=== PATIENT | male | born 1960 | race African-American/Black ===

== ENCOUNTER 2018-09-14 09:04 | Emergency (ER) | payer OTHER ==
[~2018-09-14] VITALS: Ht 177.8 cm; Wt 86.2 kg
[2018-09-14 09:07] VITALS: BP 143/82
[2018-09-14] MEDS ORDERED: HYDROcodone/APAP 5/325MG 1 TAB TABLET PO ONE (09:45)
[2018-09-14] MEDS ORDERED: ORPHENADRINE CITRATE 60 MG/2 ML VIAL. IM ONE (09:45)
--- NOTE | 2018-09-14 10:11 | RAD ---
EXAM: Lumbar spine, 3 views. HISTORY: Fall. COMPARISON: None. FINDINGS: 3 views lumbar spine are obtained. There is no listhesis. The vertebral bodies are normal in height and the disc spaces are preserved. IMPRESSION: No acute osseous finding. Electronically signed by: Radha Cruz MD (09/14/2018 10:07 AM) [id number]
[2018-09-14] MEDS ORDERED: HYDR-2761 PO (10:41)
[2018-09-14] MEDS ORDERED: ORPH100T PO (10:41)
--- NOTE | 2018-09-14 10:42 | PHYS DOC ---
Past Medical History Past Medical History: Diabetes-Type II, Hypertension Alcohol Use: Occasionally Drug Use: None Adult General Chief Complaint Chief Complaint: MECHANICAL FALL HPI HPI Patient is a 58 year old AA male who presents to the ER with complaints of a headache, photosensitivity, upper back pain, and low back pain after a fall on the ice while working this morning. Pt states he slipped and landed flat on his back. He denies any LOC, dizziness, blurred vision, nausea, vomiting, neck pain , numbness/tingling of his extremities, or weakness. PT states that when he fell his head was padded by the hat and coat he was wearing. Currently, he rates his pain a 6-7/10. He states that he has not taken anything for relief of the pain [employer]HE[employer]. Review of Systems Review of Systems Constitutional: Denies fever or chills [] Eyes: Denies change in visual acuity, redness, or eye pain, reports photosensitivity [] Respiratory: Denies shortness of breath [] GI: Denies abdominal pain, nausea, or vomiting Musculoskeletal: See HPI Integument: Denies rash or skin lesions [] Neurologic: Denies focal weakness or sensory changes; reports mild headache All other systems were reviewed and found to be within normal limits, except as documented in this note. Current Medications Current Medications Current Medications Medications (Trade) Dose Ordered Sig/[facility] Start Time Stop Time Status Last Admin Dose Admin Acetaminophen/ Hydrocodone Bitart (Lortab 5/325) 1 tab 1X ONCE 09/14/18 09:45 09/14/18 09:46 DC 09/14/18 09:44 1 TAB Orphenadrine Citrate (Norflex) 60 mg 1X ONCE 09/14/18 09:45 09/14/18 09:46 DC 09/14/18 09:44 60 MG Allergies Allergies Allergies Coded Allergies Type Severity Reaction Last Updated Verified No Known Drug Allergies 09/14/18 No Physical Exam Physical Exam Constitutional: Well developed, well nourished, no acute distress, non-toxic appearance. [] HENT: Normocephalic, atraumatic, bilateral external ears normal, oropharynx moist, no oral exudates, nose normal. [] Eyes: PERRLA, conjunctiva normal, no discharge. [] Neck: Normal range of motion, no bony tenderness, supple, no stridor. [] Cardiovascular:Heart rate regular rhythm, no murmur [] Lungs & Thorax: Bilateral breath sounds clear to auscultation [] Skin: Warm, dry, no erythema, no rash. [] Back: lumbar spine tenderness to palpation, no cervical or thoracic spine bony tenderness, left paraspinal tenderness to palpation of T-spine Extremities: No tenderness, no cyanosis, no clubbing, ROM intact, no edema. [] Neurologic: Alert and oriented X 3, normal motor function, normal sensory function, no focal deficits noted. [] Psychologic: Affect normal, judgement normal, mood normal. [] Current Patient Data Vital Signs Vital Signs Date Time Temp Pulse Resp B/P (MAP) Pulse Ox O2 Delivery O2 Flow Rate FiO2 09/14/18 09:07 98.2 94 16 143/82 (102) 98 Room Air 98.2 EKG EKG [] Radiology/Procedures Radiology/Procedures PROCEDURE: LUMBAR SPINE 2-3V EXAM: Lumbar spine, 3 views. HISTORY: Fall. COMPARISON: None. FINDINGS: 3 views lumbar spine are obtained. There is no listhesis. The vertebral bodies are normal in height and the disc spaces are preserved. IMPRESSION: No acute osseous finding. [] Course & Med Decision Making Course & Med Decision Making Pertinent Labs and Imaging studies reviewed. (See chart for details) Dx: low back pain/ strain; fall lumbar x-ray negative. [place] C-spine rule not concerning for head trauma.. Pt was given IM norflex and a hydrocodone in the ER, reports reduced pain from medications. Prescriptions written for hydrocodone and norflex. Follow up with work comp doc in 1-2 days, return to ER if symptoms worsen. Patient verbalized an understanding of home care, medications, follow-up, and return to ED instructions and was in agreement with the plan of care. [] Dragon Disclaimer Dragon Disclaimer This electronic medical record was generated, in whole or in part, using a voice recognition dictation system. Departure Departure Impression: Primary Impression: Fall Additional Impressions: Low back pain Low back strain Disposition: 01 HOME, SELF-CARE Condition: STABLE Referrals: NO PCP (PCP) Patient Instructions: Low Back Strain with [facility] Additional Instructions: Fill prescription(s) and use as directed. Recommend application of ice and rest of affected area. Follow up with your work comp doctor in 1-2 days. Return to the ER if your symptoms worsen. Scripts Hydrocodone Bit/Acetaminophen (HYDROCODONE-APAP 5-325 ) 1 Each Tablet 1 TAB PO PRN Q6HRS PRN for PAIN for 2 Days, #8 TAB 0 Refills Prov: COREY PEPPER APRN 09/14/18 Orphenadrine Citrate (ORPHENADRINE CITRATE) 100 Mg Tablet.er 100 MG PO BID PRN for PAIN for 10 Days, #20 TAB.SR 0 Refills Prov: COREY PEPPER APRN 09/14/18 Problem Qualifiers Primary Impression: Fall Encounter type: initial encounter Qualified Codes: W19.XXXA - Unspecified fall, initial encounter Additional Impressions: Low back pain Chronicity: acute Back pain laterality: bilateral Sciatica presence: without sciatica Qualified Codes: M54.5 - Low back pain Low back strain Encounter type: initial encounter Qualified Codes: S39.012A - Strain of muscle, fascia and tendon of lower back, initial encounter COREY PEPPER APRN Sep 14, 2018 10:42
== END 2018-09-14 10:45 | disposition home or self-care (01) ==
LOC: ER 09:04
DX: S39.012A Strain of muscle, fascia and tendon of lower back, initial encounter (principal); M54.6 Pain in thoracic spine; R51 Headache; E11.9 Type 2 diabetes mellitus without complications; I10 Essential (primary) hypertension; W00.0XXA Fall on same level due to ice and snow, initial encounter; Y93.89 Activity, other specified; Y92.89 Other specified places as the place of occurrence of the external cause; Y99.8 Other external cause status
CPT/HCPCS: 72100; 96372; 99283; J2360; 99284